=== PATIENT | male | born 1980 | race African-American/Black ===

== ENCOUNTER 2016-09-14 23:38 | Emergency (ER) | payer SELFPAY ==
--- NOTE | 2016-09-14 23:47 | ED Physician Documentation ---
Male Genitourinary Problems - HISTORIAN Historian: patient - HPI Chief Complaint: Male Urogenital Problems Onset: days ago (several days ago started to have some in termittent pain in the left testicle, over the last several hours pain has become constant and more intense. No testicular swelling. Patient states that he has had a testicular torsion on the right and had something cut out, ? testicle. 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 ) Duration: continues in ED Further Comments: yes (No precipitating factor, has been having some mild discomfort with urination from time to time. No urethrall dischage noted.) - Associated Symptoms Problems Urinating: none Testicular Pain: L testicle Testicular Swelling: none Penile Pain: No Penile Swelling: No Flank Pain: none Abdominal Pain: none - Sexual History Sexual History: unprotected intercourse, other (has been incarcerated for about one week) - ROS CONST: none GI/: nausea. denies: vomiting, abdominal pain - PAST HX Past History: other (no problems other then as above) Surgeries/Procedures: other Allergies/Adverse Reactions: Allergies Allergy/AdvReac Type Severity Reaction Status Date / Time No Known Allergies Allergy Verified 09/14/16 23:53 Home Medications: Ambulatory Orders Medication Instructions Recorded NK [NK] 09/14/16 - SOCIAL HX Smoking History: less than 1 pack/day (1/2 ppd) Alcohol Use: occasionally Drug Use: marijuana - FAMILY HX Family History: none - VITAL SIGNS Vital Signs: Vital Signs Temp Pulse Resp BP Pulse Ox 98.5 F 60 16 137/86 98 09/14/16 23:42 09/14/16 23:42 09/14/16 23:42 09/14/16 23:42 09/14/16 23:42 - REVIEWED ASSESSMENTS Nursing Assessment Reviewed: Yes Vitals Reviewed: Yes ED Results Lab/Radiology - Lab Results Lab Results: Lab Results 09/14/16 23:59 Urine Color Yellow (YELLOW) Urine Appearance Clear (CLEAR) Urine pH 7.0 (5.0 - 8.0) Ur Specific [place] 1.025 (1.010-1.030) Urine Protein Negative mg/dL mg/dL (NEGATIVE) Urine Ketones Negative mg/dL mg/dL (NEGATIVE) Urine Occult Blood Negative (NEGATIVE) Urine Nitrite Negative (NEGATIVE) Urine Bilirubin Negative (NEGATIVE) Urine Urobilinogen 1.0 Eu Eu (0.2-1.0) Ur Leukocyte Esterase Negative (NEGATIVE) Urine Glucose Negative mg/dL mg/dL (NEGATIVE) - Orders Orders: ED Orders Category Date Time Status CHLAMYDIA & GONORRHOEAE Routine Lab 09/14/16 23:59 Received URINALYSIS Routine Lab 09/14/16 23:59 Completed Azithromycin [Zithromax] Med 09/15/16 00:46 Once 1,000 mg PO NOW ONE Ketorolac Tromethamine [Toradol] Med 09/14/16 23:57 Discontinued 60 mg IM NOW ONE cefTRIAXone SODIUM [Rocephin] Med 09/15/16 00:41 Once 500 mg IM NOW ONE Male Genitourinary Problems - EXAM General Appearance: alert, moderate distress Abdomen: no organomegaly, tenderness (mild tenderness to the suprapubic area). No: guarding, rebound Genitals: testicles nml palp. (left testicle normal size, no swelling, no tenderness ot palpation, seated in the scrotum normally, absent right testicle) , epididymal tenderness (on left), circumcised, examined while standing. No: testicular tenderness, scrotal swelling, hernia mass, inguinal lymphadenopathy, hydrocele Respiratory: no resp distress, chest non-tender, breath sounds normal. No: wheezes, rales, rhonchi CVS: reg rate & rhythm, heart sounds normal, equal pulses, no murmur Back: non-tender Neuro/Psych: oriented X3 Skin: warm/dry, normal color Discharge Clincal Impression: Left epididymitis Additional Instructions: Take some Ibuprofen 600-800mg (3-4 200MG TABLETS) with some food every 8 hours as needed for pain. Drink a lot of fluids. Home Medications: Ambulatory Orders NK [NK] 09/14/16 Condition: Stable Disposition: HOME, SELF-CARE Decision to Admit: NO Date of Decison to Admit: 09/15/16 Decision Time: 00:38
[2016-09-14] MEDS ORDERED: KETOROLAC TROMETHAMINE 60 MG/2 ML VIAL IM ONE (23:57)
[2016-09-15 00:15] LABS: APPEARANCE,URINE Clear (CLEAR); COLOR,URINE Yellow (YELLOW); OCCULT BLOOD,URINE Negative (NEGATIVE)
[2016-09-15] MEDS ORDERED: AZITHROMYCIN 250 MG TABLET PO ONE (00:46)
[2016-09-15] MEDS ORDERED: Lidocaine 1% 5ml(IM or SUTURE)(PAIN CLINIC) ONE (01:08)
[2016-09-15] MEDS ORDERED: Lidocaine 1% 5ml(IM or SUTURE)(PAIN CLINIC) IJ ONE (01:17)
[2016-09-15 01:27] VITALS: BP 108/79
== END 2016-09-15 01:20 | disposition home or self-care (01) ==
LOC: ED 23:38
DX: N45.1 Epididymitis (principal)
CPT/HCPCS: 81002; 87801; J0696; J1885; 96372; 99283